=== PATIENT | female | born 1965 | race Asian ===

== ENCOUNTER 2016-10-13 10:30 | Emergency (ER) | payer BC ==
[~2016-10-13] VITALS: Ht 167.6 cm; Wt 63.5 kg
[2016-10-13 10:30] VITALS: BP 106/59; PULSE 80; RESP 16; TEMP 98.5; O2SAT 98
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
[2016-10-13] MEDS ORDERED: ESCI10TA54 (10:45)
[2016-10-13] MEDS ORDERED: ONDANSETRON 4 MG ODT TAB PO ONE (10:45)
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
--- NOTE | 2016-10-13 11:06 | NUR ---
at [facility] to lon patel.
[2016-10-13 11:50] VITALS: BP 122/59; PULSE 73; RESP 16; TEMP 98.5; O2SAT 100
--- NOTE | 2016-10-13 11:50 | NUR ---
Patient given written and verbal discharge instructions and verbalizes understanding. ER MD discussed with patient the results and treatment provided. Patient in stable condition. ID arm band removed. Rx of FLEXIRIL, TYLENOL, ZOFRAN given. Patient educated on pain management and to follow up with PMD. Pain Scale 0/10. Opportunity for questions provided and answered.
== END 2016-10-13 11:50 | disposition home or self-care (01) ==
LOC: SED 10:30
DX: S09.90XA Unspecified injury of head, initial encounter (principal); V49.60XA Unspecified car occupant injured in collision with unspecified motor vehicles in traffic accident, initial encounter; Y93.89 Activity, other specified; Y99.8 Other external cause status; Y92.89 Other specified places as the place of occurrence of the external cause
CPT/HCPCS: 99283; Q0162